=== PATIENT | male | born 1970 | race African-American/Black ===

== ENCOUNTER 2022-09-01 01:23 | Emergency (ER) | payer SELFPAY ==
[~2022-09-01] VITALS: Ht 190.5 cm; Wt 100.0 kg
[2022-09-01 01:58] VITALS: BP 144/86
== END 2022-09-01 01:50 | disposition left against medical advice (07) ==
LOC: EMS 01:31
DX: Z53.21 Procedure and treatment not carried out due to patient leaving prior to being seen by health care provider (principal)
CPT/HCPCS: 99281; Z7502

== ENCOUNTER 2022-09-01 03:18 | Emergency (ER) | payer SELFPAY ==
[~2022-09-01] VITALS: Ht 190.5 cm; Wt 90.9 kg
[2022-09-01 03:19] VITALS: BP 118/67
== END 2022-09-01 04:24 | disposition home or self-care (01) ==
LOC: EMS 03:18
DX: S01.111A Laceration without foreign body of right eyelid and periocular area, initial encounter (principal); F17.210 Nicotine dependence, cigarettes, uncomplicated; Y08.89XA Assault by other specified means, initial encounter; Y93.64 Activity, baseball; Y92.89 Other specified places as the place of occurrence of the external cause; Y99.8 Other external cause status
CPT/HCPCS: 12013; 99282; Z7502

== ENCOUNTER 2022-09-26 17:50 | Emergency (ER) | payer SELFPAY ==
[~2022-09-26] VITALS: Ht 190.5 cm; Wt 100.0 kg
[2022-09-26 19:36] LABS: BASOPHILS % (AUTO) 0.7 % (0.0-2.0); HEMATOCRIT 41.9 % (41-53); HEMOGLOBIN 13.5 g/dL (13.5-17.5); LYMPHOCYTES # (AUTO) 2.7 K/uL (1.0-4.8); LYMPHOCYTES % (AUTO) 36.9 % (22.0-44.0); MEAN CORPUSCULAR HEMOGLOBIN 28.7 pg (26.0-34.0); MEAN CORPUSCULAR HGB CONC 32.1 G/dL (31.0-37.0); MEAN CORPUSCULAR VOLUME 89 fL (80-100); MONOCYTES # (AUTO) 0.6 K/uL (0.1-1.0); MONOCYTES % (AUTO) 8.3 % (2.0-9.0); NEUTROPHILS # (AUTO) 3.8 K/uL (1.8-7.7); NEUTROPHILS % (AUTO) 52.1 % (40.0-70.0); PLATELET COUNT (AUTO) 213 K/uL (150-450); RED BLOOD CELL COUNT(AUTO) 4.69 MIL/uL (4.50-5.90); RED CELL DISTRIBUTION WIDTH 14.5 % (11.5-14.5)
[2022-09-26 19:47] LABS: ANION GAP 5 mmol/L (8-16); CALCIUM, TOTAL 8.7 mg/dL (8.8-10.5); CARBON DIOXIDE 30 mmol/L (22-29); CHLORIDE 104 mmol/L (98-107); CREATININE 1.07 mg/dL (0.60-1.30); GLOMERULAR FILTR. RATE CALC > 60 mL/min (>60); GLUCOSE,RANDOM 103 mg/dL (70-110); POTASSIUM 3.8 mmol/L (3.5-5.1); SODIUM SERUM 139 mmol/L (136-145)
[2022-09-26 19:49] LABS: PROTHROMBIN TIME 10.3 SEC (9.4-11.6)
[2022-09-26 19:53] LABS: ALANINE AMINOTRANSFERASE 26 U/L (12-78); ALBUMIN 3.6 g/dL (3.4-5.0); ALKALINE PHOSPHATASE 62 U/L (46-116); ASPARTATE AMINOTRANSFERASE 18 U/L (15-37); BILIRUBIN,TOTAL 0.5 mg/dL (0.1-1.0)
[2022-09-26 20:02] LABS: B-TYPE NATRIURETIC PEPTIDE 23 pg/mL (0-100)
[2022-09-26 20:43] VITALS: BP 122/70
== END 2022-09-26 20:45 | disposition home or self-care (01) ==
LOC: EMS 17:50
DX: M94.0 Chondrocostal junction syndrome [Tietze] (principal); R07.9 Chest pain, unspecified; F17.210 Nicotine dependence, cigarettes, uncomplicated; Z91.018 Allergy to other foods
CPT/HCPCS: 71045; 80053; 83880; 84484; 85025; 85610; 85730; 93005; 99285; 36415-L1; 36415-TC